=== PATIENT | male | born 1950 | race Caucasian/White ===

== ENCOUNTER 2021-11-13 08:00 | Outpatient (CLI) | payer OTHER ==
--- NOTE | 2021-11-16 16:34 | XRAY Report ---
PROCEDURE: Foot 3 View LT INDICATIONS: PAIN IN LEFT FOOT TECHNIQUE: 3 views of the foot were acquired. COMPARISON: None FINDINGS: Bones: No fractures or dislocations. No suspicious bony lesions. Scattered moderate IP degenerativ e narrowing. No definitive erosions. Soft tissues: No tibiotalar joint effusion. Achilles tendon appears normal. IMPRESSION: Scattered IP narrowing suggestive of degenerative change. Reviewed by: Genoveva Pickard MD on 11/16/2021 4:33 PM PDT Approved by: Genoveva Pickard MD on 11/16/2021 4:33 PM PDT Station ID: [id number]
== END 2021-11-13 23:59 | disposition home or self-care (01) ==
LOC: DI.S 08:00
PROVIDERS: ATTEND Registered Nurse
DX: M19.072 Primary osteoarthritis, left ankle and foot (principal)